=== PATIENT | male | born 1995 | race Two or more races ===

== ENCOUNTER 2024-06-19 11:13 | Emergency (ER) | payer MEDICAID, OTHER ==
[~2024-06-19] VITALS: Ht 160 cm; Wt 58.3 kg
[2024-06-19] MEDS: ACETAMINOPHEN 325 MG TAB PO ONE (12:11)
[2024-06-19 12:15] VITALS: BP 106/67; PULSE 85; RESP 16; TEMP 103.1; O2SAT 98
[2024-06-19] MEDS ORDERED: PRED10TA PO (12:30)
[2024-06-19] MEDS ORDERED: LEVO500T91 PO (12:30)
[2024-06-19] MEDS ORDERED: cefTRIAXone SOD 1,000 MG VL IM ONE (12:45)
[2024-06-19 12:54] LABS: Urine Bacteria FEW /hpf (None Seen); Urine Blood 1+ /uL (Negative); Urine Budding Yeast MODERATE /hpf (None Seen); Urine Clarity Turbid (Clear); Urine Color Yellow (Yellow); Urine Mucus FEW (None Seen); Urine Protein, UAD TRACE (Negative); Urine Specific Gravity 1.017 (1.001-1.035); Urine Urobilinogen Normal (Negative); Urine WBC 49 /hpf (0 - 3)
== END 2024-06-19 12:42 | disposition home or self-care (01) ==
LOC: ER 11:13
DX: J18.9 Pneumonia, unspecified organism (principal)
CPT/HCPCS: 71045; 81001